=== PATIENT | female | born 1980 | race Caucasian/White ===

== ENCOUNTER 2022-12-05 13:17 | Emergency (ER) | payer MEDICAID ==
[~2022-12-05] VITALS: Ht 165.1 cm; Wt 68.1 kg
[2022-12-05 14:18] LABS: Basophils # (auto) 0.1 10 ^3/uL (0-0.2); Eosinophils # (auto) 0.2 10 ^3/uL (0-0.8); Eosinophils % (auto) 2.8 % (0.0-7.0); Hematocrit 41.7 % (36.0-46.0); Hemoglobin 13.5 g/dL (12.2-16.2); Mean Corpuscular Hgb Conc. 32.5 g/dL (32.0-36.0); Monocytes # (auto) 0.5 10 ^3/uL (0-1.3); Monocytes % (auto) 8.6 % (0.0-12.0); Neutrophils # (auto) 3.3 10 ^3/uL (1.6-8.6)
[2022-12-05 14:20] LABS: Lymphocytes # (auto) 1.5 10 ^3/uL (0.4-5.4); Lymphocytes % (auto) 28.2 % (10.0-50.0); Mean Corpuscular Hemoglobin 26.4 pg (28.0-32.0); Mean Corpuscular Volume 81.4 fL (80.0-100.0); Neutrophils % (auto) 59.4 % (37.0-80.0); Nucleated Red Blood Cells % 0.1 %; Red Blood Cells 5.12 10^6/uL (4.0-5.20); White Blood Cell 5.5 10^3/uL (4.4-10.8)
[2022-12-05 14:37] LABS: Calcium 8.5 mg/dL (8.5-10.1); Potassium 4.1 mmol/L (3.5-5.1)
[2022-12-05 14:41] LABS: Bilirubin, Total 1.2 mg/dL (0.2-1.0); Total Protein 6.4 g/dL (6.4-8.2)
[2022-12-05] MEDS ORDERED: CEPH-322 PO (19:20)
[2022-12-05] MEDS ORDERED: FURO1TAB33 GT (19:20)
[2022-12-05 20:09] VITALS: BP 118/78
== END 2022-12-05 20:13 | disposition home or self-care (01) ==
LOC: ER 13:17
DX: L03.116 Cellulitis of left lower limb (principal); L03.115 Cellulitis of right lower limb; F12.90 Cannabis use, unspecified, uncomplicated; Z87.891 Personal history of nicotine dependence
CPT/HCPCS: 36415; 80053; 83880; 85025; 93005; 93970

== ENCOUNTER 2024-06-19 08:16 | Inpatient (IN) | payer MEDICAID ==
[~2024-06-19] VITALS: Ht 162.6 cm; Wt 75.0 kg
[~2024-06-19 08:16] MED LIST: CEPH250C PO; CEPH500C PO; FURO1TAB33 GT
[2024-06-19] MEDS: PANTOPRAZOLE 40 MG/10 ML VIAL INJ IV ONE (09:54)
[2024-06-19] MEDS: PROCHLORPERAZINE EDISYLATE 5 MG/ML 2ML VIAL IV ONE (09:54)
[2024-06-19] MEDS: SODIUM CHLORIDE 0.9% 500 ML IVB ONE (09:55)
[2024-06-19 10:40] LABS: Basophils # (auto) 0 10 ^3/uL (0-0.2); Basophils % (auto) 0.5 % (0.0-2.0); Eosinophils # (auto) 0 10 ^3/uL (0-0.8); Eosinophils % (auto) 0.2 % (0.0-7.0); Hematocrit 45.9 % (36.0-46.0); Hemoglobin 15.3 g/dL (12.2-16.2); Lymphocytes # (auto) 0.9 10 ^3/uL (0.4-5.4); Lymphocytes % (auto) 14.2 % (10.0-50.0); Mean Corpuscular Hemoglobin 30.6 pg (28.0-32.0); Mean Corpuscular Hgb Conc. 33.4 g/dL (32.0-36.0); Mean Corpuscular Volume 91.8 fL (80.0-100.0); Monocytes # (auto) 0.2 10 ^3/uL (0-1.3); Neutrophils % (auto) 82.1 % (37.0-80.0); Nucleated Red Blood Cells % 0.2 %; Platelet Count (auto) 168 10^3/uL (140-450); Red Cell Distribution Width 19.1 % (11.8-14.3); White Blood Cell 6.1 10^3/uL (4.4-10.8)
[2024-06-19 11:48] LABS: Alanine Aminotransferase 30 U/L (7-40); Alkaline Phosphatase 168 U/L (46-116); Anion Gap 7 (5-15); Aspartate Aminotransferase 41 U/L (13-40); BUN/Creatinine Ratio 7.8 (10.0-20.0); Bilirubin, Total 2.9 mg/dL (0.2-1.0); Blood Urea Nitrogen 7 mg/dL (9-23); Calcium 10.3 mg/dL (8.7-10.4); Carbon Dioxide 25 mmol/L (20-30); Chloride 109 mmol/L (98-107); Glucose 102 mg/dL (74-106); Potassium 4.4 mmol/L (3.5-5.1); Sodium 141 mmol/L (136-145); Total Protein 7.3 g/dL (5.7-8.2)
[2024-06-20] VITALS (7 sets, daily range): BP systolic 137–151; BP diastolic 90–98; PULSE 89–128; RESP 10–21; TEMP 97.8–98.5; O2SAT 90–95
[2024-06-20] MEDS: IOHEXOL 300 MG/ML 100ML BOTTLE IJ ONE (03:42)
[2024-06-20 04:58] LABS: Urine Bacteria None Seen /hpf (None Seen)
[2024-06-20 05:22] LABS: Urine Blood Negative /uL (Negative); Urine Clarity Clear (Clear); Urine Color Yellow (Yellow); Urine Mucus FEW (None Seen); Urine Protein, UAD 1+ (Negative); Urine Urobilinogen 8 mg/dL (Negative); Urine WBC 4 /hpf (0 - 5)
[2024-06-20 05:23] LABS: Urine Specific Gravity > 1.050 (1.001-1.035)
[2024-06-20 05:32] LABS: Amphetamine Screen, Urine Pos (NEGATIVE); Barbiturate Scree,Urine Neg (NEGATIVE); Benzodiazephine Screen, Urine Neg (NEGATIVE); Cannabinoid Screen, Urine Pos (NEGATIVE); Cocaine Screen, Urine Neg (NEGATIVE); Opiate Scree,Urine Neg (NEGATIVE); Phencyclidine Screen, Urine Neg (NEGATIVE)
[2024-06-20] MEDS ORDERED: HYDROmorphone HCL 2 MG/ML VL/or syr IV PRN ×2 (05:45→10:00)
[2024-06-20] MEDS ORDERED: DOCUSATE SOD 100 MG CAP PO PRN (05:45)
[2024-06-20] MEDS ORDERED: ONDANSETRON HCL 4 MG/2 ML VIAL IV PRN (05:45)
[2024-06-20] MEDS ORDERED: HYDROcodone-ACET 5/325MG TAB PO PRN (05:45)
[2024-06-20] MEDS ORDERED: ACETAMINOPHEN 325 MG TAB PO PRN (05:45)
[2024-06-20] MEDS ORDERED: MORPHINE SULFATE INJ 2 MG/ml SYRG IV PRN (06:00)
[2024-06-20] MEDS: SODIUM CHLOR 0.9% PF (SALINE LOCK) 10ML VIAL/SYR IV SCH (06:22)
[2024-06-20] MEDS: PANTOPRAZOLE 40 MG/10 ML VIAL INJ IV SCH (06:24)
[2024-06-20 07:03] LABS: Lactic Acid w/Reflex 2.7 mmol/L (0.4-2.0)
[2024-06-20 07:43] LABS: Basophils # (auto) 0 10 ^3/uL (0-0.2); Basophils % (auto) 0.5 % (0.0-2.0); Eosinophils # (auto) 0 10 ^3/uL (0-0.8); Eosinophils % (auto) 0.1 % (0.0-7.0); Hematocrit 51.4 % (36.0-46.0); Hemoglobin 17.3 g/dL (12.2-16.2); Lymphocytes # (auto) 0.9 10 ^3/uL (0.4-5.4); Mean Corpuscular Hemoglobin 30.7 pg (28.0-32.0); Mean Corpuscular Hgb Conc. 33.6 g/dL (32.0-36.0); Mean Corpuscular Volume 91.3 fL (80.0-100.0); Monocytes # (auto) 0.5 10 ^3/uL (0-1.3); Neutrophils % (auto) 78.4 % (37.0-80.0); Nucleated Red Blood Cells % 0.3 %; Platelet Count (auto) 123 10^3/uL (140-450); Red Blood Cells 5.63 10^6/uL (4.0-5.20); White Blood Cell 6.4 10^3/uL (4.4-10.8)
[2024-06-20 08:01] LABS: INR 1.45 (0.9-1.15)
[2024-06-20 08:03] LABS: Alanine Aminotransferase 26 U/L (7-40); Albumin 3.7 g/dL (3.2-4.8); Alkaline Phosphatase 148 U/L (46-116); Anion Gap 5 (5-15); Aspartate Aminotransferase 29 U/L (13-40); BUN/Creatinine Ratio 9.6 (10.0-20.0); Bilirubin, Total 3.2 mg/dL (0.2-1.0); Blood Urea Nitrogen 11 mg/dL (9-23); Calcium 9.7 mg/dL (8.7-10.4); Carbon Dioxide 27 mmol/L (20-30); Chloride 104 mmol/L (98-107); Glucose 91 mg/dL (74-106); Potassium 4.4 mmol/L (3.5-5.1); Sodium 136 mmol/L (136-145); Total Protein 6.7 g/dL (5.7-8.2)
[2024-06-20] MEDS: LACTATED RINGER'S 1,000 ML IV ONE (08:06)
[2024-06-20] MEDS ORDERED: MEPERIDINE HCL (50 MG/ML) 1 ML VIAL ONE (09:47)
[2024-06-20] MEDS ORDERED: MIDAZOLAM HCL 2MG/2ML 2ml VIAL (1mg/ml) ONE (09:47)
[2024-06-20] MEDS ORDERED: fentaNYL CITRATE 100 MCG/2 ML VL ONE (09:47)
[2024-06-20] MEDS: POVIDONE IODINE 10 % TOPICAL OINT 30GM TOP ONE (09:47)
[2024-06-20] MEDS ORDERED: DexAMETHasone SOD PHOS 10MG/1ML VIAL INJ ONE (09:51)
[2024-06-20] MEDS ORDERED: ONDANSETRON HCL 4 MG/2 ML VIAL ONE (09:51)
[2024-06-20] MEDS ORDERED: ETOMIDATE (2MG/ML) 20ML VIAL IV ONE (09:51)
[2024-06-20] MEDS ORDERED: MIDAZOLAM HCL 2MG/2ML 2ml VIAL (1mg/ml) IV PRN (10:00)
[2024-06-20] MEDS ORDERED: hydrALAZINE HCL 20 MG/ML VL IV PRN (10:00)
[2024-06-20] MEDS ORDERED: MORPHINE SULFATE 4 MG/ML SYR/VIAL IV PRN (10:00)
[2024-06-20] MEDS ORDERED: ePHEDrine SULFATE 50 MG/ML AMP IV PRN (10:00)
[2024-06-20] MEDS: ceFAZolin 1GM/50ML 100 ML IV ONE (10:15)
[2024-06-20] MEDS ORDERED: SUGAMMADEX 200mg/2ml Vial (100MG/ML) IV ONE (11:39)
[2024-06-20] MEDS: HYDROmorphone HCL 2 MG/ML VL/or syr IV ONE (11:45)
[2024-06-20] MEDS ORDERED: POTA-228 PO (15:15)
[2024-06-20] MEDS ORDERED: SILD20TA41 PO (15:15)
[2024-06-20] MEDS ORDERED: METO25TA93 PO (15:15)
[2024-06-20] MEDS ORDERED: SPIR100T4 PO (15:15)
[2024-06-20] MEDS ORDERED: LOS25T PO (15:15)
[2024-06-20] MEDS ORDERED: FURO40TA4 PO (15:15)
[2024-06-20] MEDS: D5W/SOD CHL 0.45%/KCL 20MEQ 1,000 ML IV SCH (15:35)
[2024-06-20] MEDS: METOPROLOL TARTRATE 1MG/1ML-5ML VIAL IV ONE (15:54)
[2024-06-20] MEDS: metroNIDAZOLE 500MG/100ML 100 ML IV SCH (16:30)
[2024-06-20] MEDS: SODIUM CHLORIDE 0.9% 1,000 ML IV ONE (18:38)
[2024-06-20] MEDS: ceFAZolin 2 GM/D5W50ml 50 ML IV SCH (18:42)
[2024-06-21] VITALS (8 sets, daily range): BP systolic 98–117; BP diastolic 58–90; PULSE 64–122; RESP 16–21; TEMP 97.5–98.7; O2SAT 90–100
[2024-06-21 06:50] LABS: Alanine Aminotransferase 21 U/L (7-40); Albumin 3.2 g/dL (3.2-4.8); Alkaline Phosphatase 115 U/L (46-116); Anion Gap 7 (5-15); Aspartate Aminotransferase 26 U/L (13-40); BUN/Creatinine Ratio 13.3 (10.0-20.0); Basophils # (auto) 0 10 ^3/uL (0-0.2); Basophils % (auto) 0.1 % (0.0-2.0); Blood Urea Nitrogen 15 mg/dL (9-23); Calcium 9.1 mg/dL (8.7-10.4); Carbon Dioxide 24 mmol/L (20-30); Chloride 106 mmol/L (98-107); Eosinophils # (auto) 0 10 ^3/uL (0-0.8); Glucose 147 mg/dL (74-106); Hematocrit 45.4 % (36.0-46.0); Hemoglobin 15.3 g/dL (12.2-16.2); Lymphocytes % (auto) 17.6 % (10.0-50.0); Mean Corpuscular Hemoglobin 30.6 pg (28.0-32.0); Mean Corpuscular Hgb Conc. 33.6 g/dL (32.0-36.0); Mean Corpuscular Volume 91.1 fL (80.0-100.0); Monocytes # (auto) 0.7 10 ^3/uL (0-1.3); Neutrophils # (auto) 3.9 10 ^3/uL (1.6-8.6); Neutrophils % (auto) 69.3 % (37.0-80.0); Nucleated Red Blood Cells % 0.3 %; Platelet Count (auto) 124 10^3/uL (140-450); Potassium 4.8 mmol/L (3.5-5.1); Red Blood Cells 4.98 10^6/uL (4.0-5.20); Red Cell Distribution Width 18.6 % (11.8-14.3); Sodium 137 mmol/L (136-145); White Blood Cell 5.6 10^3/uL (4.4-10.8)
[2024-06-21 06:51] LABS: Bilirubin, Total 2.7 mg/dL (0.2-1.0); Total Protein 5.9 g/dL (5.7-8.2)
[2024-06-21] MEDS: SPIRONOLACTONE 25 MG TAB PO SCH (10:00)
[2024-06-21] MEDS: METOPROLOL SUCCINATE XL 50 MG TAB PO SCH (10:00)
[2024-06-21] MEDS: FUROSEMIDE 40 MG TAB PO SCH (10:00)
[2024-06-21] MEDS: LOSARTAN POTASSIUM 25 MG TAB PO SCH (10:00)
[2024-06-21] MEDS: PANTOPRAZOLE 40 MG/10 ML VIAL INJ IV SCH (12:04)
[2024-06-21] MEDS: LACTULOSE 20Gm/30ML SOLN NG SCH (17:12)
[2024-06-22] VITALS (8 sets, daily range): BP systolic 123–143; BP diastolic 81–96; PULSE 74–119; RESP 16–20; TEMP 97.3–98; O2SAT 90–100
[2024-06-22 07:46] LABS: Basophils # (auto) 0 10 ^3/uL (0-0.2); Basophils % (auto) 0.2 % (0.0-2.0); Eosinophils # (auto) 0 10 ^3/uL (0-0.8); Eosinophils % (auto) 0.5 % (0.0-7.0); Hematocrit 42.2 % (36.0-46.0); Hemoglobin 14.3 g/dL (12.2-16.2); Lymphocytes # (auto) 1.9 10 ^3/uL (0.4-5.4); Lymphocytes % (auto) 30.1 % (10.0-50.0); Mean Corpuscular Hemoglobin 30.8 pg (28.0-32.0); Mean Corpuscular Hgb Conc. 33.8 g/dL (32.0-36.0); Mean Corpuscular Volume 91.2 fL (80.0-100.0); Monocytes # (auto) 0.8 10 ^3/uL (0-1.3); Monocytes % (auto) 12.9 % (0.0-12.0); Neutrophils # (auto) 3.5 10 ^3/uL (1.6-8.6); Neutrophils % (auto) 56.3 % (37.0-80.0); Nucleated Red Blood Cells % 0.4 %; Platelet Count (auto) 107 10^3/uL (140-450); Red Blood Cells 4.63 10^6/uL (4.0-5.20); Red Cell Distribution Width 17.9 % (11.8-14.3); White Blood Cell 6.2 10^3/uL (4.4-10.8)
[2024-06-22 07:47] LABS: Alanine Aminotransferase 17 U/L (7-40); Alkaline Phosphatase 104 U/L (46-116); Anion Gap 10 (5-15); Aspartate Aminotransferase 28 U/L (13-40); BUN/Creatinine Ratio 16.7 (10.0-20.0); Blood Urea Nitrogen 15 mg/dL (9-23); Calcium 8.7 mg/dL (8.7-10.4); Carbon Dioxide 22 mmol/L (20-30); Chloride 108 mmol/L (98-107); Glucose 79 mg/dL (74-106); Sodium 140 mmol/L (136-145)
[2024-06-22 07:48] LABS: Albumin 3.2 g/dL (3.2-4.8); Bilirubin, Total 2.1 mg/dL (0.2-1.0); Total Protein 5.7 g/dL (5.7-8.2)
[2024-06-22] MEDS: ONDANSETRON HCL 4 MG/2 ML VIAL IV ONE (12:11)
[2024-06-22] MEDS: ONDANSETRON HCL 4 MG/2 ML VIAL IV PRN (19:50)
[2024-06-23] VITALS (7 sets, daily range): BP systolic 114–131; BP diastolic 71–91; PULSE 73–103; RESP 17–20; TEMP 98–98.5; O2SAT 94–100
[2024-06-23 07:27] LABS: Basophils # (auto) 0 10 ^3/uL (0-0.2); Basophils % (auto) 0.5 % (0.0-2.0); Eosinophils # (auto) 0.1 10 ^3/uL (0-0.8); Eosinophils % (auto) 1.4 % (0.0-7.0); Hematocrit 41.8 % (36.0-46.0); Lymphocytes # (auto) 1.3 10 ^3/uL (0.4-5.4); Lymphocytes % (auto) 24.4 % (10.0-50.0); Mean Corpuscular Hemoglobin 30.4 pg (28.0-32.0); Mean Corpuscular Hgb Conc. 33.5 g/dL (32.0-36.0); Mean Corpuscular Volume 90.7 fL (80.0-100.0); Monocytes # (auto) 0.5 10 ^3/uL (0-1.3); Monocytes % (auto) 9.4 % (0.0-12.0); Neutrophils # (auto) 3.4 10 ^3/uL (1.6-8.6); Neutrophils % (auto) 64.3 % (37.0-80.0); Nucleated Red Blood Cells % 0.6 %; Platelet Count (auto) 112 10^3/uL (140-450); Red Cell Distribution Width 18.1 % (11.8-14.3); White Blood Cell 5.2 10^3/uL (4.4-10.8)
[2024-06-23 07:41] LABS: Alanine Aminotransferase 16 U/L (7-40); Albumin 2.9 g/dL (3.2-4.8); Alkaline Phosphatase 106 U/L (46-116); Anion Gap 5 (5-15); Aspartate Aminotransferase 21 U/L (13-40); BUN/Creatinine Ratio 8.6 (10.0-20.0); Blood Urea Nitrogen 7 mg/dL (9-23); Calcium 8.9 mg/dL (8.7-10.4); Carbon Dioxide 27 mmol/L (20-30); Chloride 108 mmol/L (98-107); Glucose 103 mg/dL (74-106); Potassium 3.8 mmol/L (3.5-5.1); Sodium 140 mmol/L (136-145)
[2024-06-23 07:42] LABS: Bilirubin, Total 1.9 mg/dL (0.2-1.0); Total Protein 5.3 g/dL (5.7-8.2)
[2024-06-23] MEDS: LORazepam 2MG/ML-1ML VIAL IV PRN (15:28)
[2024-06-24 01:00] VITALS: BP 127/86; PULSE 105; RESP 16; TEMP 98.3; O2SAT 94
[2024-06-24 05:00] VITALS: BP 133/88; PULSE 87; RESP 19; TEMP 98.4; O2SAT 94
[2024-06-24 06:32] LABS: Basophils # (auto) 0 10 ^3/uL (0-0.2); Basophils % (auto) 0.5 % (0.0-2.0); Eosinophils # (auto) 0.2 10 ^3/uL (0-0.8); Hematocrit 44.5 % (36.0-46.0); Hemoglobin 14.9 g/dL (12.2-16.2); Lymphocytes # (auto) 1.2 10 ^3/uL (0.4-5.4); Lymphocytes % (auto) 24.3 % (10.0-50.0); Mean Corpuscular Hemoglobin 30.2 pg (28.0-32.0); Mean Corpuscular Hgb Conc. 33.4 g/dL (32.0-36.0); Mean Corpuscular Volume 90.5 fL (80.0-100.0); Monocytes # (auto) 0.6 10 ^3/uL (0-1.3); Monocytes % (auto) 11.3 % (0.0-12.0); Neutrophils # (auto) 3.1 10 ^3/uL (1.6-8.6); Neutrophils % (auto) 60.9 % (37.0-80.0); Nucleated Red Blood Cells % 0.3 %; Platelet Count (auto) 130 10^3/uL (140-450); Red Blood Cells 4.92 10^6/uL (4.0-5.20); Red Cell Distribution Width 18.2 % (11.8-14.3); White Blood Cell 5.1 10^3/uL (4.4-10.8)
[2024-06-24 06:43] LABS: Alanine Aminotransferase 11 U/L (7-40); Albumin 3.1 g/dL (3.2-4.8); Alkaline Phosphatase 109 U/L (46-116); Anion Gap 4 (5-15); Aspartate Aminotransferase 21 U/L (13-40); BUN/Creatinine Ratio 6.7 (10.0-20.0); Blood Urea Nitrogen 6 mg/dL (9-23); Calcium 9.1 mg/dL (8.7-10.4); Carbon Dioxide 29 mmol/L (20-30); Chloride 106 mmol/L (98-107); Glucose 83 mg/dL (74-106); Potassium 3.8 mmol/L (3.5-5.1); Sodium 139 mmol/L (136-145)
[2024-06-24 06:44] LABS: Bilirubin, Total 1.6 mg/dL (0.2-1.0); Total Protein 5.4 g/dL (5.7-8.2)
[2024-06-24 08:00] VITALS: PULSE 112; RESP 18; O2SAT 94
[2024-06-24 09:00] VITALS: BP 122/85; PULSE 106; RESP 18; TEMP 97.8; O2SAT 94
[2024-06-24] MEDS ORDERED: LEVO500T91 PO (09:33)
[2024-06-24] MEDS ORDERED: METR-344 PO (09:33)
[2024-06-24 12:55] VITALS: BP 111/74; PULSE 98; RESP 18; TEMP 98.5; O2SAT 92
== END 2024-06-24 13:30 | disposition home or self-care (01) | DRG 228 ==
LOC: EDBD 08:16 → ER 08:22 → TELE 06-20 05:34 → TELE-CENTR 06-20 13:28
PROVIDERS: ADMIT Internal Medicine; ATTEND Family Medicine
PROC: 0WQF0ZZ Repair Abdominal Wall, Open Approach (ICD-10-PCS; principal; 2024-06-20 10:50)
DX: K42.0 Umbilical hernia with obstruction, without gangrene (principal); I11.0 Hypertensive heart disease with heart failure; I50.32 Chronic diastolic (congestive) heart failure; K74.60 Unspecified cirrhosis of liver; E86.0 Dehydration; K43.6 Other and unspecified ventral hernia with obstruction, without gangrene; F12.10 Cannabis abuse, uncomplicated; F17.210 Nicotine dependence, cigarettes, uncomplicated; I07.1 Rheumatic tricuspid insufficiency; F15.10 Other stimulant abuse, uncomplicated; Z79.899 Other long term (current) drug therapy
CPT/HCPCS: 36415; 71045; 74177; 80053; 80307; 81001; 82140; 83605; 84702; 85025; 85610; 93005; 93306; G0378; J1100; J2250; J2405; J2470; J3490

== ENCOUNTER 2025-08-13 20:19 | Inpatient (IN) | payer MEDICAID ==
[~2025-08-13] VITALS: Ht 165.1 cm; Wt 102.9 kg
[~2025-08-13 20:19] MED LIST changes: -CEPH250C PO; -FURO1TAB33 GT; +FURO40TA4 PO; +LEVO500T91 PO; +LOS25T PO; +METO25TA93 PO; +METR-344 PO; +POTA-228 PO; +SILD20TA41 PO; +SPIR100T4; +SPIR100T4 PO
[2025-08-13 20:32] VITALS: PULSE 117; RESP 20; O2SAT 92
[2025-08-13] MEDS: ALBUTEROL SULF 2.5 MG/0.5ML(0.5%) NEB SOLN NEB ONE (21:13)
[2025-08-13 21:34] LABS: Hematocrit 38.7 % (36.0-46.0); Hemoglobin 13.0 g/dL (12.2-16.2); Mean Corpuscular Hemoglobin 30.3 pg (28.0-32.0); Mean Corpuscular Volume 90.4 fL (80.0-100.0); Nucleated Red Blood Cells % 0.5 %
[2025-08-13 21:36] LABS: Chloride 104 mmol/L (98-107); Sodium 138 mmol/L (136-145)
[2025-08-13 21:37] LABS: Anion Gap 11 (5-15); Carbon Dioxide 23 mmol/L (20-31)
[2025-08-13 21:42] LABS: BUN/Creatinine Ratio 12.8 (10.0-20.0); Blood Urea Nitrogen 11 mg/dL (9-23); Glucose 86 mg/dL (74-106)
--- NOTE | 2025-08-13 21:47 | DVH ---
EXAM: XY CHEST XRAY 1 VIEW HISTORY: cp TECHNIQUE: 1 view of the chest COMPARISON: XR CHEST 1 VIEW on DOS: 04/26/25 FINDINGS/IMPRESSION: LUNGS: Indeterminate retrocardiac opacification which may be related to under penetration from severe cardiomegaly MEDIASTINUM: Severe cardiomegaly and/or superimposed pericardial effusion BONES: No acute osseous abnormality. OTHER: None.
[2025-08-13 22:10] LABS: Calcium 8.5 mg/dL (8.7-10.4); Potassium 3.3 mmol/L (3.5-5.1)
--- NOTE | 2025-08-13 22:22 | ED.PDOC ---
HPI Comments 45 y/o F is BIBA for c/c of shortness of breath and bilateral leg swelling. Patient endorses on onset of symptoms after patient decided to stop taking her Lasix and potassium prescription medication for the past 5x days. Admits to methamphetamine use, this morning. Denies any chest or abdominal pain, cough, congestion, fever, chills, or further acute symptoms. Significant history for CHF, polysubstance abuse, and noncompliance. REVIEW OF SYSTEMS: General: No fever, no chills, or fatigue HEENT: No sore throat, no earache, no congestion, no neck pain. Cardiac: No chest pain. No palpitations. Lungs: Shortness of breath, no cough. GI: No nausea, no vomiting, no diarrhea, no constipation, no abdominal pain : No dysuria, frequency, or urgency. No hematuria. Musculoskeletal: Bilateral leg swelling. No joint pain , no joint swelling Skin: No rash, no itching. Neuro: No headache, no dizziness, no weakness PHYSICAL EXAM: General: Awake, alert and oriented. No acute distress. Skin: Skin in warm, dry and intact. Appropriate color for ethnicity. HEENT: The head is normocephalic and atraumatic. Conjunctivae are clear without exudates or hemorrhage. Sclera is non-icteric. EOM are intact. No signs of nystagmus. Eyelids are normal in appearance without swelling or lesions. Oral mucosa is pink and moist Neck: The neck is supple with normal range of motion. No JVD. Cardiac: Heart rate and rhythm are normal. No murmurs, gallops, or rubs are auscultated. Respiratory: No signs of respiratory distress. Lung sounds are clear in all lobes bilaterally without rales, rhonchi, or wheezes. Abdominal: Abdomen is soft, non-tender without distention, guarding or rigidity. Bowel sounds are present and normoactive in all four quadrants. Extremities: Bilateral lower extremity pitting edema, which extends to her lower abdomen. Remaining upper extremities are atraumatic in appearance without deformity or edema. Neurological: The patient is awake, alert and oriented to person, place, and time with normal speech. Speech is clear. There is no facial asymmetry. Psychiatric: Appropriate mood and affect. Good judgement and insight. Chief Complaint: Shortness of Breath Time Seen by MD: 20:59 Primary Care Provider: NONE Reviewed Notes: Nurses Notes, Clock Repair Technician Notes, Medications, Allergies Allergies: Coded Allergies: NO KNOWN ALLERGIES (Unverified , 09/15/15) Home Meds Active Scripts Metronidazole (Flagyl) 500 Mg Tab, 1 TAB PO TID, #30 TAB Prov:LEANN SEGURA MD 06/24/24 Levofloxacin Hemihydrate (LEVAQUIN 500 MG) 500 Mg Tab, 1 TAB PO DAILY, #10 TAB Prov:LEANN SEGURA MD 06/24/24 Reported Medications Spironolactone (Spironolactone) 100 Mg Tab, 1 DAILY 11/08/24 Furosemide (Furosemide) 40 Mg Tab, 1 TAB PO DAILY 11/08/24 Cephalexin Monohydrate (Cephalexin) 500 Mg Cap, 1 CAP PO TID for 7 Days, #21 06/21/24 Potassium Chloride (Potassium Chloride ER) 10 Meq Tab, 1 TAB PO DAILY 06/20/24 Losartan Potassium (Losartan Potassium) 25 Mg Tab, 1 TAB PO DAILY 06/20/24 Metoprolol Succinate (Metoprolol Succinate Er) 25 Mg Tab, 1 TAB PO DAILY 06/20/24 Sildenafil Citrate (Sildenafil Citrate) 20 Mg Tab, PO 06/20/24 Spironolactone (Spironolactone) 100 Mg Tab, 1 TAB PO DAILY 06/20/24 Furosemide (Furosemide) 40 Mg Tab, 1 TAB PO DAILY 06/20/24 Information Source: Patient, Emergency Med Personnel Mode of Arrival: EMS Severity: Moderate Timing: Hours Duration: Since onset Prehospital treatment: 12 Lead EKG, Accucheck (139), Video Game Technician, Oxygen Past Medical History PAST MEDICAL HISTORY: CHF, Liver (Cirrhosis) Past Medical History (Other): SBO Influenza A pneumonia Surgical History: Denies all surgeries ROAD CUTTER History: No Pertinent ROAD CUTTER History Family History Family History: Unobtainable Social History Smoker: Cigarettes Alcohol: Occasionally Drugs: Marijuana, Methamphetamine Lives In: Home EKG EKG : Pulse Rate (adult): 116 [place]: Normal Cardiac Rhythm: ST Block: None Hypertrophy: None ST: Normal Was a procedure done? Was a procedure done?: No CP Differential Dx Differential Diagnosis: N/A Other Differential Diagnosis Differential diagnoses considered includebut arenot limited to acute Bronchitis, Asthma, COPD, Pneumothorax, PE, CHF, Pulmonary HTN, Anemia, CO Poiso alysa, Methemoglobinemia, Hyperventilation, Metabolic Acidosis, Pulmonary Edema, Pneumonia, ACS, Pericardial Tamponade, Anxiety, other Differential Diagnosis: N/A X-Ray, Labs, Meds, VS Vital Signs Date Time Temp Pulse Resp B/P (MAP) Pulse Ox O2 Delivery O2 Flow Rate FiO2 08/13/25 21:13 18 91 Nasal Cannula* 6 44 08/13/25 21:00 120 21 110/85 (93) 94 08/13/25 20:32 20 92 Nasal Cannula* 4 36 08/13/25 20:32 98.6 117 20 136/86 (103) 92 98.6 08/13/25 20:32 117 20 92 Nasal Cannula* 4 36 08/13/25 20:29 98.0 118 25 122/65 91 98.0 08/13/25 20:27 116 Lab Test 08/13/25 22:00 08/13/25 21:19 Range/Units Troponin I High Sensitivity 33 35 *H </=34 ng/L White Blood Count 5.2 4.4-10.8 10^3/uL Red Blood Count 4.28 4.0-5.20 10^6/uL Hemoglobin 13.0 12.2-16.2 g/dL Hematocrit 38.7 36.0-46.0 % Mean Corpuscular Volume 90.4 80.0-100.0 fL Mean Corpuscular Hemoglobin 30.3 28.0-32.0 pg Mean Corpuscular Hemoglobin Concent 33.5 32.0-36.0 g/dL Red Cell Distribution Width 19.2 H 11.8-14.3 % Platelet Count 135 L 140-450 10^3/uL Mean Platelet Volume 9.1 6.9-10.8 fL Neutrophils (%) (Auto) 67.5 37.0-80.0 % Lymphocytes (%) (Auto) 18.6 10.0-50.0 % Monocytes (%) (Auto) 12.1 H 0.0-12.0 % Eosinophils (%) (Auto) 0.6 0.0-7.0 % Basophils (%) (Auto) 1.2 0.0-2.0 % Neutrophils # (Auto) 3.5 1.6-8.6 10 ^3/uL Lymphocytes # (Auto) 1.0 0.4-5.4 10 ^3/uL Monocytes # (Auto) 0.6 0-1.3 10 ^3/uL Eosinophils # (Auto) 0 0-0.8 10 ^3/uL Basophils # (Auto) 0.1 0-0.2 10 ^3/uL Nucleated Red Blood Cells 0.5 % Sodium Level 138 136-145 mmol/L Potassium Level 3.3 L 3.5-5.1 mmol/L Chloride Level 104 98-107 mmol/L Carbon Dioxide Level 23 20-31 mmol/L Anion Gap 11 5-15 Blood Urea Nitrogen 11 9-23 mg/dL Creatinine 0.86 0.550-1.02 mg/dL Glomerular Filtration Rate Calc 85 >90 mL/min BUN/Creatinine Ratio 12.8 10.0-20.0 Serum Glucose 86 74-106 mg/dL Calcium Level 8.5 L 8.7-10.4 mg/dL B-Type Natriuretic Peptide 525.25 0-100 pg/mL [place] [id number] Ph: [phone] DIAGNOSTIC IMAGING Diagnostic Imaging Report : [id number] Signed PATIENT: JOSE ALFREDO BINGHAM ACCT: [id number] UNIT: [id number] : 1980 LOC: ER ROOM / BED: / AGE / SEX: 45 / F ADM STATUS: REG ER SERVICE 01 ORDERING PHYSICIAN: MALLY CHUNG MD PROCEDURE(s): CXR1 - CHEST XRAY 1 VIEW REASON: cp ORDER NUMBER(s): [id number], ACCESSION NUMBER(s): [id number] EXAM: XY CHEST XRAY 1 VIEW HISTORY: cp TECHNIQUE: 1 view of the chest COMPARISON: XR CHEST 1 VIEW on DOS: 04/26/25 FINDINGS/IMPRESSION: LUNGS: Indeterminate retrocardiac opacification which may be related to under penetration from severe cardiomegaly MEDIASTINUM: Severe cardiomegaly and/or superimposed pericardial effusion BONES: No acute osseous abnormality. OTHER: None. ATED BY: JOSE ANTONIO ARCHULETA MD DICTATED DATE/TIME: 08/13/252143 SIGNED BY: JOSE ANTONIO ARCHULETA MD SIGNED DATE/TIME: 08/13/252143 CC: Time of 1ST Reevaluation: 21:19 Reevaluation 1ST: Unchanged Patient Education/Counseling: Treatment, Other (need for admission) Family Education/Counseling: No Family Present SEPSIS Sepsis Screen Date sepsis recognized/suspect: Aug 13, 2025 Time Sepsis recognized/suspect: 2031 Recent Procedure: No On Antibiotic Therapy: No Respiratory Rate >20: No Heart Rate >90: Yes Temp<36 C (96.8 F) or >38.3 C: No SBP <90 or MAP <65 mmHG: No New Acute Mental Status Change: No Is the patient on CPAP, BIPAP,: No Physician Orders Electrocardigram (08/13/25 21:02) Chest Xray 1 View (08/13/25 21:02) Vital Signs Q1HR (08/13/25 21:02) Saline Lock (08/13/25 21:02) Video Game Technician (08/13/25 ) Electrocardigram (08/13/25 22:02) Electrocardigram (08/14/25 00:02) Vital Signs Date Time Temp Pulse Resp B/P (MAP) Pulse Ox O2 Delivery O2 Flow Rate FiO2 08/13/25 21:13 18 91 Nasal Cannula* 6 44 08/13/25 21:00 120 21 110/85 (93) 94 08/13/25 20:32 20 92 Nasal Cannula* 4 36 08/13/25 20:32 98.6 117 20 136/86 (103) 92 98.6 08/13/25 20:32 117 20 92 Nasal Cannula* 4 36 08/13/25 20:29 98.0 118 25 122/65 91 98.0 08/13/25 20:27 116 Laboratory Tests Test 08/13/25 21:19 White Blood Count 5.2 10^3/uL (4.4-10.8) Departure 1 Departure Time of Disposition: 22:21 Impression: Primary Impression: CHF exacerbation Disposition: ADMITTED INPATIENT Condition: Serious Comments MDM: Patient admitted to hospitalist service for further treatment, evaluation and monitoring. Extensive evaluation was performed in attempt to identify or rule out: (See differential diagnosis section) The following tests were ordered, and results were reviewed by me and discussed with patient: (See diagnostic results section) I reviewed and agreed with the following test results read by other providers: Chest x-ray I reviewed the following notes from the pt's past medical encounters: November 08, 2024 encounter for acute on chronic congestive heart failure exacerbation Additional information was gathered from interviewing the following independent historians: EMS personnel Decision regarding hospitalization or escalation of hospital level of care: Risk and benefits of admission for further treatment of patient's condition was considered. Due to patient's current clinical condition, high risk of decline and poor outcome if discharged and need for further inpatient management and monitoring, patient will be admitted to the hospital. Critical Care Note Critical Care Time?: No Stability Stability form required: No Heart Score Heart Score: Heart Score Response (Comments) Value History N/A 0 EKG N/A 0 Age N/A 0 Risk Factors N/A 0 Troponin N/A 0 Total 0 I personally scribed for MALLY CHUNG MD ([email or web address]) on 08/13/25 at 23:31. Electronically submitted by Aleksandr Woods ([email or web address]). MALLY CHUNG MD Aug 13, 2025 22:21
[2025-08-13] MEDS ORDERED: ONDANSETRON HCL 4 MG/2 ML VIAL IV PRN (22:30)
[2025-08-13] MEDS: FUROSEMIDE 40 MG/4 ML VIAL IV ONE (22:30)
[2025-08-13] MEDS ORDERED: ACETAMINOPHEN 325 MG TAB PO PRN (22:30)
[2025-08-13] MEDS ORDERED: MORPHINE SULFATE INJ 2 MG/ml SYRG IV PRN (22:30)
[2025-08-13] MEDS ORDERED: NITROGLYCERIN 0.4 MG SL TAB SL PRN (22:30)
[2025-08-13] MEDS ORDERED: DOCUSATE SOD 100 MG CAP PO PRN (22:30)
--- NOTE | 2025-08-13 22:33 | DVHHP2 ---
History of Present Illness Reason for Visit: Acute exacerbation of congestive heart failure History of Present Illness The patient is a 45-year-old female with past medical history of congestive hear t failure, liver cirrhosis, SBO, and influenza A pneumonia presented to [facility] ED with complaint of shortness of breaths. Patient reports she has been experiencing difficulty breathing, associated with bilateral leg swelling, increased work of breathing, getting worse that prompted this visit. Patient was seen and evaluated in the ED, laboratory data shows WBC 5.2, platelets 135, sodium 138, potassium 3.3, BUN 11, creatinine 0.86, GFR 85, glucose 86, calcium 8.5, troponin 35, BNP 525.25, blood pressure 136/86, heart rate 118, temperature 98.6 F, O2 saturation 92% on oxygen. Chest x-ray revealing severe cardiomegaly and/or superimposed pericardial effusion. Patient was started on Lasix 80 mg IV x1, please see medication orders section in the computer. On my assessment, patient denied chest pain, no dizziness, headache, diaphoresis, currently on oxygen, no diarrhea, nausea, vomiting, fever, no chills. Patient was admitted for further evaluation and medical management. Past Medical History CHF, Liver (Cirrhosis), SBO, Influenza A pneumonia Past Surgical History Denies all surgeries Family History Reviewed, noncontributory to the management of this case. Past Social History The patient lives at home, smokes cigarettes, drinks alcohol occasionally, uses marijuana and methamphetamine. Review of Systems Constitutional: Yes: Weakness; No: Fever, Chills, Sweats, Malaise, Other Eyes: No: Pain, Vision change, Conjunctivae inflammation, Eyelid inflammation, Other, Redness ENT: No: Ear pain, Ear discharge, Nose pain, Nose discharge, Nose congestion, Mouth pain, Mouth swelling, Throat pain, Throat swelling, Other Respiratory: Shortness of breath, Other (SOB at rest); No: Cough, Dry, SOB with excertion, Wheezing, Hemoptysis, Pleuritic Pain, Sputum, Wheezing Cardiovascular: No: Chest Pain, Palpitations, Orthopnea, Paroxysmal Noc. Dyspnea, Edema, Lt Headedness, Other Gastrointestinal: No: Nausea, Vomiting, Abdominal Pain, Diarrhea, Constipation, Melena, Hematochezia, Other Genitourinary: No Dysuria, No Frequency, No Incontinence, No Hematuria, No Retention, No Other Musculoskeletal: other (Bilateral lower extremity swelling); No: neck pain, shoulder pain, arm pain, back pain, hand pain, leg pain, foot pain Skin: No: Rash, Lesions, Jaundice, Bruising, Other Neurological: No: Weakness, Numbness, Incoordination, Change in speech, Confusion, Seizures, Other Allergies: Coded Allergies: NO KNOWN ALLERGIES (Unverified , 09/15/15) Exam Vital Signs Vital Signs Date Time Temp Pulse Resp B/P (MAP) Pulse Ox O2 Delivery O2 Flow Rate FiO2 08/13/25 21:13 18 91 Nasal Cannula* 6 44 08/13/25 20:32 98.6 117 136/86 (103) 98.6 General Appearance: Alert, Oriented X3, Cooperative, No acute distress HEENT: Atraumatic, PERRLA, EOMI, Mucous membr. moist/pink Respiratory: Normal air movement, Other (Diminished breath sounds) Cardiovascular: Regular rate, Normal S1, Normal S2, No murmurs Abdominal: Normal bowel sounds, Soft, No tenderness, No hepatospenomegaly, No masses Extremities: No clubbing, No cyanosis, No edema, Normal pulses, Other (Lower extremity swelling) Skin: No rashes, No significant lesion Neuro: Normal speech, Normal tone, Sensation intact, Cranial nerves 3-12 NL, Reflexes 2+, Other (Generalized weakness) Psych/Mental Status: Mental status NL, Mood NL Labs/Xrays Labs Test 08/13/25 22:00 08/13/25 21:19 Range/Units White Blood Count 5.2 4.4-10.8 10^3/uL Red Blood Count 4.28 4.0-5.20 10^6/uL Hemoglobin 13.0 12.2-16.2 g/dL Hematocrit 38.7 36.0-46.0 % Mean Corpuscular Volume 90.4 80.0-100.0 fL Mean Corpuscular Hemoglobin 30.3 28.0-32.0 pg Mean Corpuscular Hemoglobin Concent 33.5 32.0-36.0 g/dL Red Cell Distribution Width 19.2 H 11.8-14.3 % Platelet Count 135 L 140-450 10^3/uL Mean Platelet Volume 9.1 6.9-10.8 fL Neutrophils (%) (Auto) 67.5 37.0-80.0 % Lymphocytes (%) (Auto) 18.6 10.0-50.0 % Monocytes (%) (Auto) 12.1 H 0.0-12.0 % Eosinophils (%) (Auto) 0.6 0.0-7.0 % Basophils (%) (Auto) 1.2 0.0-2.0 % Neutrophils # (Auto) 3.5 1.6-8.6 10 ^3/uL Lymphocytes # (Auto) 1.0 0.4-5.4 10 ^3/uL Monocytes # (Auto) 0.6 0-1.3 10 ^3/uL Eosinophils # (Auto) 0 0-0.8 10 ^3/uL Basophils # (Auto) 0.1 0-0.2 10 ^3/uL Nucleated Red Blood Cells 0.5 % Sodium Level 138 136-145 mmol/L Potassium Level 3.3 L 3.5-5.1 mmol/L Chloride Level 104 98-107 mmol/L Carbon Dioxide Level 23 20-31 mmol/L Anion Gap 11 5-15 Blood Urea Nitrogen 11 9-23 mg/dL Creatinine 0.86 0.550-1.02 mg/dL Glomerular Filtration Rate Calc 85 >90 mL/min BUN/Creatinine Ratio 12.8 10.0-20.0 Serum Glucose 86 74-106 mg/dL Calcium Level 8.5 L 8.7-10.4 mg/dL B-Type Natriuretic Peptide 525.25 0-100 pg/mL PATIENT: JOSE ALFREDO BINGHAM ACCT: [id number] UNIT: [id number] : 1980 LOC: ER ROOM / BED: / AGE / SEX: 45 / F ADM STATUS: REG ER SERVICE 01 ORDERING PHYSICIAN: MALLY CHUNG MD PROCEDURE(s): CXR1 - CHEST XRAY 1 VIEW REASON: cp ORDER NUMBER(s): [id number], ACCESSION NUMBER(s): [id number] EXAM: XY CHEST XRAY 1 VIEW HISTORY: cp TECHNIQUE: 1 view of the chest COMPARISON: XR CHEST 1 VIEW on DOS: 04/26/25 FINDINGS/IMPRESSION: LUNGS: Indeterminate retrocardiac opacification which may be related to under penetration from severe cardiomegaly MEDIASTINUM: Severe cardiomegaly and/or superimposed pericardial effusion BONES: No acute osseous abnormality. OTHER: None. SEPSIS Sepsis Screen Date sepsis recognized/suspect: Aug 13, 2025 Time Sepsis recognized/suspect: 2031 Recent Procedure: No On Antibiotic Therapy: No Respiratory Rate >20: No Heart Rate >90: Yes Temp<36 C (96.8 F) or >38.3 C: No SBP <90 or MAP <65 mmHG: No New Acute Mental Status Change: No Is the patient on CPAP, BIPAP,: No Physician Orders Electrocardigram (08/13/25 21:02) Chest Xray 1 View (08/13/25 21:02) Vital Signs Q1HR (08/13/25 21:02) Saline Lock (08/13/25 21:02) Ict Sales Assistant (08/13/25 ) Electrocardigram (08/13/25 22:02) Electrocardigram (08/14/25 00:02) Troponin-I Hs (08/13/25 22:02) Troponin-I Hs (08/14/25 00:02) Furosemide Injection (Lasix Injection) (08/14/25 10:00) Aspirin Tablet (08/14/25 10:00) Aspirin Tablet (08/13/25 22:30) Carvedilol Tablet (Coreg Tablet) (08/14/25 10:00) Carvedilol Tablet (Coreg Tablet) (08/13/25 22:30) Levalbuterol Hcl (Xopenex Medneb) (08/14/25 00:00) Potassium Er Tablet (Klor-Con Tablet) (08/13/25 22:30) Admit (08/13/25:) Allergies (08/13/25:) Code Status (08/13/25:) Sodium Chloride Lock (Saline Lock Ns) (08/14/25 06:00) Oxygen Per Hour (08/13/25:25) Hydrocodone-Acet 5/325mg Tab ([place] 5/32 (08/13/25 22:30) Ondansetron Hcl (Zofran) (08/13/25 22:30) Docusate Sodium Capsule (Colace Capsule) (08/13/25 22:30) Complete Blood Count (08/14/25 04:00) Comprehensive Metabolic Panel (08/14/25 04:00) Cardiac Diet-2gna,Lofat,Lochol (08/14/25 Breakfast) Echo 2d Mode Cardiac Dop (08/13/25 22:25) Condition: Serious (08/13/25 22:25) Acetaminophen Tablet (Tylenol Tablet) (08/13/25 22:30) Bedrest With Bathroom Privileg (08/13/25:25) Maintain Bed Rest (08/13/25 22:25) Sequential Compression Device (08/13/25 ) Nitroglycerin Sublingual (Ntrostat Subli (08/13/25 22:30) Morphine Sulfate Injection (08/13/25 22:30) Stat Ekg For Chest Pain (08/13/25:25) Notify Of Changes From Base (08/13/25:) Clerical Car Checker For 24 Hours (08/13/25:25) Emergency Dysrhythmia Protocol (08/13/25:) Rhythm Strips Once Every Shift (08/13/25:25) Oxygen By Nasal Cannula (08/13/25:25) Vital Signs Date Time Temp Pulse Resp B/P (MAP) Pulse Ox O2 Delivery O2 Flow Rate FiO2 08/13/25 21:13 18 91 Nasal Cannula* 6 44 08/13/25 20:32 20 92 Nasal Cannula* 4 36 08/13/25 20:32 98.6 117 20 136/86 (103) 92 98.6 08/13/25 20:32 117 20 92 Nasal Cannula* 4 36 08/13/25 20:29 98.0 118 25 122/65 91 98.0 08/13/25 20:27 116 Laboratory Tests Test 08/13/25 21:19 White Blood Count 5.2 10^3/uL (4.4-10.8) Medications Medications Dose Ordered Sig/Kendra Route Start Time Stop Time Status Last Admin Dose Admin Albuterol 2.5 mg ONCE ONCE NEB 08/13/25 21:15 08/13/25 21:16 DC 08/13/25 21:13 2.5 MG Assessment/Plan Assessment/Plan Acute exacerbation of congestive heart failure Hypokalemia Generalized weakness Plan 1. Admit to telemetry unit 2. Breathing treatment 3. Pain control management 4. Management of fluids and electrolytes 5. Consultation for hospitalist 6. Diagnostic tests chest x-ray 7. DVT prophylaxis-on aspirin 8. Repeat labs CBC, CMP in a.m. 9. Continue with current medical management 10. Treatment plan discussed with patient and RN. Patient verbalized understanding. Plan discussed with: Patient, Other (RN) My Orders Orders - MONTY CLINTON DNP Procedure Category Date Status Time Furosemide Injection PHA 08/14/25 Verified (Lasix Injection) 10:00 Aspirin Tablet PHA 08/14/25 Verified 10:00 Aspirin Tablet PHA 08/13/25 Verified 22:30 Carvedilol Tablet PHA 08/14/25 Verified (Coreg Tablet) 10:00 Carvedilol Tablet PHA 08/13/25 Verified (Coreg Tablet) 22:30 Levalbuterol Hcl PHA 08/14/25 Verified (Xopenex Medneb) 00:00 Potassium Er Tablet PHA 08/13/25 Verified (Klor-Con Tablet) 22:30 Admit ADMIT 08/13/25 Verified 22:25 Allergies ERIN 08/13/25 Verified 22:25 Code Status CODE 08/13/25 Verified 22:25 Sodium Chloride Lock PHA 08/14/25 Verified (Saline Lock Ns) 06:00 Oxygen Per Hour RT 08/13/25 Verified 22:25 Hydrocodone-Acet PHA 08/13/25 Verified 5/325mg Tab ([place] 22:30 Ondansetron Hcl PHA 08/13/25 Verified (Zofran) 22:30 Docusate Sodium PHA 08/13/25 Verified Capsule (Colace 22:30 Complete Blood Count LAB 08/14/25 Verified 04:00 Comprehensive LAB 08/14/25 Verified Metabolic Panel 04:00 Cardiac DIET 08/14/25 Verified Diet-2gna,Lofat,Lochol Breakfast Echo 2d Mode Cardiac US 08/13/25 Verified DOP 22:25 Condition: Serious ERIN 08/13/25 Verified 22:25 Acetaminophen Tablet PHA 08/13/25 Verified (Tylenol Tablet) 22:30 Bedrest With Bathroom ERIN 08/13/25 Verified Privileg 22:25 Maintain Bed Rest ERIN 08/13/25 Verified 22:25 Sequential ERIN 08/13/25 Verified Compression Device Nitroglycerin PHA 08/13/25 Verified Sublingual (Ntrostat 22:30 Morphine Sulfate PHA 08/13/25 Verified Injection 22:30 Stat Ekg For Chest ERIN 08/13/25 Verified Pain 22:25 Notify Md Of Changes ERIN 08/13/25 Verified From Base 22:25 Clerical Car Checker For [facility] 08/13/25 Verified 24 Hours 22:25 Emergency Dysrhythmia [facility] 08/13/25 Verified Protocol 22:25 Rhythm Strips Once [facility] 08/13/25 Verified Every Shift 22:25 Oxygen By Nasal RT 08/13/25 Verified Cannula 22:25 Problem List: (1) Acute exacerbation of congestive heart failure (2) Hypokalemia (3) Generalized weakness Date of Service: Aug 13, 2025 Billing Provider: MONTY CLINTON DNP Common Visit Codes: [id number] INP/OBS CARE (HIGH) MONTY CLINTON DNP Aug 13, 2025 22:33
[2025-08-13 22:58] VITALS: BP 128/80; PULSE 119; RESP 20; TEMP 98.4; O2SAT 93
[2025-08-13] MEDS: CARVEDILOL 3.125 MG TAB PO ONE (23:31)
[2025-08-13] MEDS: POTASSIUM CHL 20 Meq TABLET PO ONE (23:31)
[2025-08-14] VITALS (16 sets, daily range): BP systolic 100–124; BP diastolic 59–78; PULSE 78–113; RESP 12–24; TEMP 97.8–98.8; O2SAT 88–98
[2025-08-14] MEDS: LEVALBUTEROL HCL 1.25 MG/3 ML NEB NEB SCH (00:03)
[2025-08-14 00:26] LABS: Urine Protein, UAD 1+ (Negative)
[2025-08-14] MEDS: HYDROcodone-ACET 5/325MG TAB PO PRN (04:37)
[2025-08-14] MEDS: SODIUM CHLOR 0.9% PF (SALINE LOCK) 10ML VIAL/SYR IV SCH (05:08)
[2025-08-14 05:56] LABS: Hematocrit 40.0 % (36.0-46.0); Hemoglobin 13.2 g/dL (12.2-16.2); Mean Corpuscular Hemoglobin 29.8 pg (28.0-32.0); Mean Corpuscular Volume 90.4 fL (80.0-100.0); Nucleated Red Blood Cells % 0.1 %
[2025-08-14 06:26] LABS: Alanine Aminotransferase 35 U/L (7-40); Anion Gap 9 (5-15); BUN/Creatinine Ratio 10.7 (10.0-20.0); Blood Urea Nitrogen 9 mg/dL (9-23); Carbon Dioxide 24 mmol/L (20-31); Chloride 104 mmol/L (98-107); Glucose 75 mg/dL (74-106); Potassium 3.9 mmol/L (3.5-5.1); Sodium 137 mmol/L (136-145); Total Protein 6.3 g/dL (5.7-8.2)
[2025-08-14 06:33] LABS: Albumin 2.9 g/dL (3.2-4.8); Alkaline Phosphatase 183 U/L (46-116); Bilirubin, Total 8.8 mg/dL (0.2-1.0); Calcium 8.2 mg/dL (8.7-10.4)
--- NOTE | 2025-08-14 09:56 | ECG ---
[facility] Test Date: 2025-08-13 Test Time: 20:27:34 Pat Name: JOSE ALFREDO BINGHAM Department: [facility] ED Patient ID: [facility]-[id number] Room: 0245T A Gender: F Fiberglass Quality Technician: nico : 1980 Requested By: MALLY CHUNG Order Number: [id number] Reading MD: Jose Pop Measurements Intervals [place] Rate: 116 P: 77 MO: 167 QRS: 125 QRSD: 108 T: -43 QT: 347 QTc: 483 Interpretive Statements Sinus tachycardia Left atrial enlargement Low voltage, extremity and precordial leads Probable right ventricular hypertrophy Nonspecific T abnormalities, lateral leads Electronically Signed On 08-14-2025 15:17:35 PDT by Jose Pop Please click the below link to view image of tracing.
[2025-08-14] MEDS: CARVEDILOL 12.5 MG TAB PO SCH (10:00)
[2025-08-14] MEDS: FUROSEMIDE 40 MG/4 ML VIAL IV SCH ×2 (10:37→18:00)
--- NOTE | 2025-08-14 14:30 | DVHPN2 ---
Assessment/Plan Assessment/Plan progress note 45 yo F with HFpEF, RV failure, meth use admitted for heart failure exacerbation. reported med use, denies alcohol use physical exam aox4 unkempt b/l crackles s1 s2 systolic murmur abdomen distended b/l LE edema labs ekg imaging reviewed POCUS done, severe RV dilation, IVC dilated with <50% excursion on inspiration, LVEF preserved, large pericardial effusion, limited study assessment and plan acute on chronic diastolic HF acute on chronic right heart failure torrential TR large pericardial effusion cirrhosis likely cardiac type 2 RI demand ischemia iso exacerbation HFpEF with exacerbation severe pulm HTN thrombocytopenia hyperbilirubinemia meth use telemetry diuresis, goal net -2L resume GDMT cardio consult for biv failure and pericardial effusion and severe phTN o2 maintain spo2 >94 reinforce abstinence and compliance trend lft echo (last nov 12) maintain MAP >65 diet cardiac dvt ppx lovenox poor prognosis full code Plan discussed with: Patient Date of Service: Aug 14, 2025 Billing Provider: PASHA HIDALGO MD Common Visit Codes: [id number] INP/OBS CARE(HIGH) PASHA HIDALGO MD Aug 14, 2025 14:30
--- NOTE | 2025-08-14 16:41 | DVHINCON2 ---
Date Seen: Aug 14, 2025 Referring Physician MD Gustavo Reason for Consultation Biventricular failure, large pericardial effusion, severe PAH History of Present Illness This is a 45-year-old female who presented to the emergency room via EMS with a chief complaint of shortness of breath for two days. The patient complains of progressive shortness of breath associated with increased abdominal girth, SHARMA, PND, and bilateral lower extremity edema. Denies chest pain, palpitations, diaphoresis, or syncopal events. She underwent a 12 lead revealing a sinus tachycardia rhythm at 116 bpm. Troponin levels peaked at 35 ng/L. Denies following up in the outpatient setting with a primary hearing officer. States she is currently taking Lasix and KCL therapy only. Significant medical history includes congestive heart failure with preserved EF, history of severe pulmonary hypertension, history of pericardial effusion, torrential wide open tricuspid regurgitation, paroxysmal atrial fibrillation without current therapy, liver cirrhosis, methamphetamine abuse with latest intake yesterday, and tobacco use including 15 pack-years. Past Medical History Past medical history reviewed. No other significant than mentioned above. Past Surgical History Hernia repair Family History: Patient reports no known family medical history. Family History Family history reviewed. Social History Admits to methamphetamine use since 13 y.o. Smokes one pack of cigarettes every two days. Stop cannabinoid use. Allergies: Coded Allergies: NO KNOWN ALLERGIES (Unverified , 09/15/15) Home Meds Active Scripts Metronidazole (Flagyl) 500 Mg Tab, 1 TAB PO TID, #30 TAB Prov:LEANN SEGURA MD 06/24/24 Levofloxacin Hemihydrate (LEVAQUIN 500 MG) 500 Mg Tab, 1 TAB PO DAILY, #10 TAB Prov:LEANN SEGURA MD 06/24/24 Reported Medications Spironolactone (Spironolactone) 100 Mg Tab, 1 DAILY 11/08/24 Furosemide (Furosemide) 40 Mg Tab, 1 TAB PO DAILY 11/08/24 Cephalexin Monohydrate (Cephalexin) 500 Mg Cap, 1 CAP PO TID for 7 Days, #21 06/21/24 Potassium Chloride (Potassium Chloride ER) 10 Meq Tab, 1 TAB PO DAILY 06/20/24 Losartan Potassium (Losartan Potassium) 25 Mg Tab, 1 TAB PO DAILY 06/20/24 Metoprolol Succinate (Metoprolol Succinate Er) 25 Mg Tab, 1 TAB PO DAILY 06/20/24 Sildenafil Citrate (Sildenafil Citrate) 20 Mg Tab, PO 06/20/24 Spironolactone (Spironolactone) 100 Mg Tab, 1 TAB PO DAILY 06/20/24 Furosemide (Furosemide) 40 Mg Tab, 1 TAB PO DAILY 06/20/24 Home Meds Lasix KCL Current Medications Current Medications Medications (Trade) Dose Ordered Sig/Kendra Route PRN Reason Start Time Stop Time Status Last Admin Furosemide (Lasix Injection) 40 mg DAILY IV 08/14/25 10:00 08/14/25 10:37 Aspirin 81 mg DAILY PO 08/14/25 10:00 08/14/25 10:37 Carvedilol (Coreg Tablet) 12.5 mg Q12HR PO 08/14/25 10:00 Levalbuterol HCl (Xopenex Medneb) 0.625 mg Q6HR NEB 08/14/25 00:00 08/14/25 11:55 Sodium Chloride (Saline Lock Ns) 10 ml Q8HR IV 08/14/25 06:00 08/14/25 14:02 Acetaminophen/ Hydrocodone Bitart ([place] 5/325MG Tab) 1 tab Q4HP PRN PO MODERATE PAIN (4-6 PAIN SCALE) 08/13/25 22:30 08/14/25 11:55 Ondansetron HCl (Zofran) 4 mg Q4HP PRN IV NAUSEA / VOMITING 08/13/25 22:30 08/14/25 14:21 DC Docusate Sodium (Colace Capsule) 100 mg BIDPRN PRN PO FOR CONSTIPATION 08/13/25 22:30 08/14/25 14:21 DC Acetaminophen (Tylenol Tablet) 650 mg Q6HP PRN PO PAIN SCALE 1-3 OR TEMP>100.4 08/13/25 22:30 Nitroglycerin (Ntrostat Sublingual) 0.4 mg Q5MINP PRN SL FOR CHEST PAIN 08/13/25 22:30 08/14/25 14:21 DC Morphine Sulfate 2 mg Q30M PRN IV FOR CHEST PAIN 08/13/25 22:30 08/14/25 14:21 DC Review of Systems Constitutional: No symptom reported Ears, Nose, & Throat: No symptom reported Eyes: No symptom reported Neurological: No symptoms reported Pulmonary/Respiratory: SOB, SHARMA, PND, BLE edema Cardiovascular: No symptom reported Gastrointestinal: Increased abdominal girth Genitourinary: No symptom reported Musculoskeletal: No symptom reported Skin: No symptom reported Psychiatric: No symptom reported Endocrine: No symptom reported Hemotologic/Lymphatic: No symptom reported Vital Signs Vital Signs Date Time Temp Pulse Resp B/P (MAP) Pulse Ox O2 Delivery O2 Flow Rate FiO2 08/14/25 13:00 98.0 87 20 118/73 (88) 89 98.0 08/14/25 11:55 Nasal Cannula 5.0 08/14/25 11:55 40 Physical Exam General Appearance: Cooperative. Unkept. Tachypneic. Moderate acute respiratory distress Head Exam: Normal inspection Neck Exam: Normal inspection. Normal alignment Pulmonary/Respiratory: Crackles to bilateral breath sounds. O2 via NC Cardiovascular/Chest: Regular rate and rhythm. Sinus rhythm. Systolic murmur. + JVD. Peripheral Pulses: 2+ Radial (R). 2+ Radial (L). 2+ Pedal (R). 2+ Pedal (L) Abdominal Exam: Normal bowel sounds. Soft. Ascitic Ankle Exam: Positive ankle pitting edema, 2+ Lower extremities: Positive lower extremity pitting edema, 2+ Neuro/Mental Status: A&O x3. Coherent Thoughts/Psych: Normal thought pattern. Appropriate mood and affect. Apathetic Appearance: Moderate acute respiratory distress Skin Exam: Normal inspection. Normal color. Warm. Dry Labs/Diagnostic Data Labs Test 08/14/25 05:35 08/14/25 00:20 08/13/25 23:59 08/13/25 21:19 Range/Units White Blood Count 4.2 L 4.4-10.8 10^3/uL Red Blood Count 4.43 4.0-5.20 10^6/uL Hemoglobin 13.2 12.2-16.2 g/dL Hematocrit 40.0 36.0-46.0 % Mean Corpuscular Volume 90.4 80.0-100.0 fL Mean Corpuscular Hemoglobin 29.8 28.0-32.0 pg Mean Corpuscular Hemoglobin Concent 33.0 32.0-36.0 g/dL Red Cell Distribution Width 19.3 H 11.8-14.3 % Platelet Count 123 L 140-450 10^3/uL Mean Platelet Volume 8.8 6.9-10.8 fL Neutrophils (%) (Auto) 64.8 37.0-80.0 % Lymphocytes (%) (Auto) 19.3 10.0-50.0 % Monocytes (%) (Auto) 12.6 H 0.0-12.0 % Eosinophils (%) (Auto) 1.9 0.0-7.0 % Basophils (%) (Auto) 1.4 0.0-2.0 % Neutrophils # (Auto) 2.7 1.6-8.6 10 ^3/uL Lymphocytes # (Auto) 0.8 0.4-5.4 10 ^3/uL Monocytes # (Auto) 0.5 0-1.3 10 ^3/uL Eosinophils # (Auto) 0.1 0-0.8 10 ^3/uL Basophils # (Auto) 0.1 0-0.2 10 ^3/uL Nucleated Red Blood Cells 0.1 % Sodium Level 137 136-145 mmol/L Potassium Level 3.9 3.5-5.1 mmol/L Chloride Level 104 98-107 mmol/L Carbon Dioxide Level 24 20-31 mmol/L Anion Gap 9 5-15 Blood Urea Nitrogen 9 9-23 mg/dL Creatinine 0.84 0.550-1.02 mg/dL Glomerular Filtration Rate Calc 88 >90 mL/min BUN/Creatinine Ratio 10.7 10.0-20.0 Serum Glucose 75 74-106 mg/dL Calcium Level 8.2 L 8.7-10.4 mg/dL Total Bilirubin 8.8 H 0.2-1.0 mg/dL Aspartate Amino Transferase (AST) 59 H 13-40 U/L Alanine Aminotransferase (ALT) 35 7-40 U/L Alkaline Phosphatase 183 H 46-116 U/L Total Protein 6.3 5.7-8.2 g/dL Albumin 2.9 L 3.2-4.8 g/dL Troponin I High Sensitivity 35 *H </=34 ng/L Urine Color Dark-yellow Yellow Urine Clarity Clear Clear Urine pH 5.5 5.0-9.0 Urine Specific [place] 1.016 1.001-1.035 Urine Protein 1+ H Negative Urine Ketones Negative Negative Urine Blood 1+ H Negative /uL Urine Nitrite Negative Negative Urine Bilirubin 1+ H Negative Urine Urobilinogen 4 H Negative mg/dL Urine Leukocyte Esterase Negative Negative /uL Urine RBC 1 0 - 4 /hpf Urine Microscopic WBC 3 0-5 /HPF Urine Squamous Epithelial Cells Few <5 /hpf Urine Bacteria None seen None Seen /hpf Urine Hyaline Casts Few 0 - 2 /lpf Urine Mucus Few None Seen Urine Glucose Normal Normal mg/dL B-Type Natriuretic Peptide 525.25 0-100 pg/mL Assessment Acute on chronic decompensated HFpEF, NYHA Class IV NSTEMI Type II secondary to above Recent history of atrial fibrillation, ?transient (off BB/antiarrhythmic/AC therapy) Torrential wide open tricuspid regurgitation Moderate posterior pericardial effusion Borderline thrombocytopenia Polysubstance abuse (meth,tobacco) Medical noncompliance Plan/Recommendation (Dr. Brower) Preliminary transthoracic echocardiogram reveals a preserved EF, RVSP at 34 mmHg, and a posterior pericardial effusion without evidence of tamponade which is also not amenable for pericardiocentesis. Initiate GDMT for CHF, preload and afterload reduction, strict I&Os, daily weight, and fluid restriction. The patient with history of A-fib presents with a normal sinus rhythm ([id number] Score 2 points, HAS-BLED 1 point). She can benefit from an outpatient event monitor to further delineate need of anticoagulation given borderline thromb ocytopenia. She could be a candidate for an atrial appendage closure as outpatient. Notify Cardiology of any tachyarrhythmias, hemodynamic changes, or worsening respiratory failure. Thank you for allowing us to participate in this patient's care. Please call if you have any questions or concerns. Critical care time: 40 min. This medical document was created using an electronic medical record system with voice recognition software and computerized dictation system. Although this document has been carefully reviewed, there might still be some phonetic and typographical errors. Occasional wrong-word or ``sound-alike substitutions may have occurred due to the inherent limitations of voice recognition software. These areas are purely typographical due to imperfections of the software programs and do not reflect any compromise in the patient's medical care. Please read the chart carefully and recognize, using context, where these substitutions have occurred. Plan discussed with: Patient, Other NYHA Physical activity limitations: Class4(Severe)discomfort (w any activit,symptoms at rest) Date of Service: Aug 14, 2025 Billing Provider: GILL BARR Cardiology Common Codes: [id number] CARE 30-74 MIN GILL BARR Aug 14, 2025 16:41
[2025-08-14 19:02] LABS: Opiate Scree,Urine Neg (NEGATIVE)
[2025-08-14 19:22] LABS: Amphetamine Screen, Urine Pos (NEGATIVE); Barbiturate Scree,Urine Neg (NEGATIVE); Benzodiazephine Screen, Urine Neg (NEGATIVE); Cannabinoid Screen, Urine Pos (NEGATIVE); Cocaine Screen, Urine Neg (NEGATIVE); Phencyclidine Screen, Urine Neg (NEGATIVE)
[2025-08-14] MEDS: CARVEDILOL 3.125 MG TAB PO SCH (22:00)
[2025-08-14] MEDS: SACUBITRIL-VALSARTAN 24mg/26mg TAB PO SCH (22:55)
[2025-08-15] VITALS (17 sets, daily range): BP systolic 89–135; BP diastolic 46–89; PULSE 67–99; RESP 14–20; TEMP 97.5–98.4; O2SAT 86–100
[2025-08-15 06:07] LABS: Hematocrit 40.5 % (36.0-46.0); Hemoglobin 13.6 g/dL (12.2-16.2); Mean Corpuscular Hemoglobin 30.7 pg (28.0-32.0); Mean Corpuscular Volume 91.4 fL (80.0-100.0); Nucleated Red Blood Cells % 0.3 %
[2025-08-15 06:20] LABS: Chloride 103 mmol/L (98-107); Potassium 3.8 mmol/L (3.5-5.1); Sodium 136 mmol/L (136-145)
[2025-08-15 06:21] LABS: Anion Gap 8 (5-15); Carbon Dioxide 25 mmol/L (20-31)
[2025-08-15 06:26] LABS: BUN/Creatinine Ratio 11.0 (10.0-20.0); Blood Urea Nitrogen 13 mg/dL (9-23); Glucose 102 mg/dL (74-106)
[2025-08-15 06:31] LABS: Calcium 8.3 mg/dL (8.7-10.4)
--- NOTE | 2025-08-15 08:41 | DVHPN2 ---
Consult Progress Note Date Seen: Aug 15, 2025 Subjective Review of Systems: CVS:Normal, RESPIRATORY:Abnormal, NEURO:Normal Other Systems: C/o mild SOB Objective vital signs Vital Sign Date Time Temp Pulse Resp B/P (MAP) Pulse Ox O2 Delivery O2 Flow Rate FiO2 08/15/25 06:19 97.5 96 97/46 (63) 95 97.5 08/15/25 05:00 17 08/15/25 00:35 Room Air 08/15/25 00:35 0 21 Total Intake and Output 08/14/25 08/14/25 08/15/25 15:00 23:00 07:00 Intake Total 650 ml 300 ml Output Total 310 ml Balance 650 ml -10 ml medications Current Medications Medications Dose Ordered Sig/Kendra Route Start Time Stop Time Status Last Admin Dose Admin Aspirin 81 mg DAILY PO 08/14/25 10:00 08/14/25 10:37 81 MG Levalbuterol HCl 0.625 mg Q6HR NEB 08/14/25 00:00 08/15/25 00:35 0.625 MG Sodium Chloride 10 ml Q8HR IV 08/14/25 06:00 08/15/25 06:03 10 ML Acetaminophen/ Hydrocodone Bitart 1 tab Q4HP PRN PO 08/13/25 22:30 08/14/25 22:55 1 TAB Acetaminophen 650 mg Q6HP PRN PO 08/13/25 22:30 Carvedilol 3.125 mg Q12HR PO 08/14/25 22:00 Empaglifozin 10 mg DAILY PO 08/15/25 10:00 Sacubitril/ Valsartan 0.5 tab BID PO 08/14/25 22:00 08/14/25 22:55 0.5 TAB Furosemide 40 mg BIDD IV 08/14/25 18:00 Examination: GENERAL:Abnormal, LUNGS:Abnormal (BLS crackles), CVS:Abnormal (BLE edema ++), NEURO:Abnormal laboratory and microbiology Laboratory Tests 08/15/25 05:30 Test 08/15/25 05:30 Range/Units Serum Glucose 102 74-106 mg/dL Problem List/Assessment/Plan Problem List/Assessment/Plan Acute on chronic decompensated HFpEF, NYHA Class IV End-stage right ventricular failure NSTEMI Type II secondary to above Recent history of atrial fibrillation, ?transient (off BB/antiarrhythmic/AC therapy) Torrential wide open tricuspid regurgitation Moderate posterior pericardial effusion Borderline thrombocytopenia Polysubstance abuse (meth,tobacco) Medical noncompliance Plan/Recommendation (Dr. Brower) Case discussed with Dr. Brower. Transthoracic echocardiogram reveals a preserved EF at 50%, end-stage RV failure, and a moderate mainly posterior pericardial effusion without evidence of tamponade not amenable to percutaneous intervention. Continue GDMT for HFpEF as tolerated, preload and afterload reduction, strict I&Os, daily weight, and fluid restriction. The patient with history of A-fib presents with a normal sinus rhythm ([id number] Score 2 points, HAS-BLED 1 point). She can benefit from an outpatient event monitor to further delineate need of anticoagulation given borderline thrombocytopenia. She could also be a candidate for an atrial appendage closure as outpatient. Kindly call if in need of further recommendations. Signing off at this time. Thank you for allowing us to participate in this patient's care. Please call if you have any questions or concerns. This medical document was created using an electronic medical record system with voice recognition software and computerized dictation system. Although this document has been carefully reviewed, there might still be some phonetic and typographical errors. Occasional wrong-word or ``sound-alike substitutions may have occurred due to the inherent limitations of voice recognition software. These areas are purely typographical due to imperfections of the software programs and do not reflect any compromise in the patient's medical care. Please read the chart carefully and recognize, using context, where these substitutions have occurred. Plan discussed with: Patient, Other Date of Service: Aug 15, 2025 Billing Provider: GILL BARR Cardiology Common Codes: [id number] HOSP CARE(High GILL BARR Aug 15, 2025 08:41
[2025-08-15] MEDS: EMPAGLIFLOZIN 10 MG TAB PO SCH (10:21)
--- NOTE | 2025-08-15 12:12 | DVHSR ---
APPROVED REPORT EXAM: Two-dimensional and M-mode echocardiogram with Doppler and color Doppler. Blood Pressure: 106/78 mmHg INDICATION Heart Failure RISK FACTORS Height: 5'5", Weight: 226 DIMENSIONS LVDd3.5 (3.8-5.7cm)LA (2D)3.0 (1.9-4.0cm)Aortic Root2.6 (2.0-3.7cm) LVDs1.6 (2.5-4.0cm)LA (MM) (1.9-4.0cm)Aortic Cusp Exc1.8 (1.5-2.0cm) EF (%) 84.0 (55-70%)Rt. Atrium7.0 (1.9-4.0cm)Asc. Aorta cm IVSd0.7 (0.7-1.1cm)RV (D)7.5 (1.8-2.4cm) PWd0.9 (0.7-1.1cm) Mitral Valve MitralMitral Stenosis E/A ratio0.02D MVAcm2 Aortic Valve Aortic ValveAortic Stenosis V10.70m/Ros Mean GR.mmHg V20.98m/Ros Peak GR.4mmHg LVOT Diameter1.9 (1.8-2.4cm)Doppler AVA2.02cm2 Pulmonic Valve V20.85m/s Tricuspid Valve TR Velocity1.90m/s [id number] Conclusion lvef 50% end stage RV failure, markedly severely enlarged R side torrential tricuspid regurg cannot assess PA pressurs moderate pericardial effusion, mainly posterior, not amenalbe to percutaneous intervention, no tampon sarah dilated IVC
[2025-08-15 12:46] LABS: Base Excess -0.4 mmol/L (-2.0-3.0)
--- NOTE | 2025-08-15 12:57 | DVHPN2 ---
Assessment/Plan Assessment/Plan progress note 45 yo F with HFpEF, RV failure, meth use admitted for heart failure exacerbation. reported med use, denies alcohol use seen today, breathing better, off ra, c/w diuresis, will go to snf on dc. PT eval, hydroxizine, melatonin. switch coreg to lower dose physical exam aox4 unkempt b/l crackles s1 s2 systolic murmur abdomen distended b/l LE edema labs ekg imaging reviewed POCUS done, severe RV dilation, IVC dilated with <50% excursion on inspiration, LVEF preserved, large pericardial effusion, limited study assessment and plan acute on chronic diastolic HF acute on chronic right heart failure torrential TR large pericardial effusion cirrhosis likely cardiac type 2 [place] demand ischemia iso exacerbation HFpEF with exacerbation severe pulm HTN thrombocytopenia hyperbilirubinemia meth use telemetry diuresis, goal net -2L resume GDMT cardio consult for biv failure and pericardial effusion and severe phTN o2 maintain spo2 >94 reinforce abstinence and compliance trend lft echo (last nov 12) maintain MAP >65 ss for snif diet cardiac dvt ppx lovenox poor prognosis full code Plan discussed with: Patient My Orders Orders - PASHA HIDALGO MD Procedure Category Date Status Time Strict I & O ERIN 08/14/25 In Process 14:20 Daily Weight ERIN 08/14/25 In Process 14:20 * Cardiology Consult CONS 08/14/25 Transmitted 14:27 Abg W/ Co-Ox RT 08/15/25 Logged 12:14 Date of Service: Aug 15, 2025 Billing Provider: PASHA HIDALGO MD Common Visit Codes: [id number] INP/OBS CARE(HIGH) PASHA HIDALGO MD Aug 15, 2025 12:57
--- NOTE | 2025-08-15 12:59 | DVH ---
EXAM: XY CHEST PORTABLE Indication: Acute HF Technique: Single frontal view of the chest was obtained Comparison: XY CHEST XRAY 1 VIEW on DOS: 08/13/25, XR CHEST 1 VIEW on DOS: 04/26/25, XR CHEST 1 VIEW on DOS: 04/24/25, XR CHEST 1 VIEW on DOS: 04/19/25, XY CHEST PORTABLE on DOS: 06/22/24 FINDINGS: Lines and Tubes: None Lungs: Left retrocardiac opacity. Pleura: No effusion. No pneumothorax. Cardiomediastinal contours: Cardiomegaly. Bones: No acute osseous abnormality. IMPRESSION: Cardiomegaly. Left retrocardiac opacity.
[2025-08-15 16:42] LABS: Base Excess -0.4 mmol/L (-2.0-3.0)
[2025-08-15] MEDS: FUROSEMIDE 20 MG/2 ML VIAL IV SCH (18:30)
[2025-08-15] MEDS: MELATONIN 5 MG TAB PO SCH (21:00)
[2025-08-15] MEDS: ONDANSETRON HCL 4 MG/2 ML VIAL IV PRN (21:45)
[2025-08-16] VITALS (14 sets, daily range): BP systolic 85–110; BP diastolic 53–73; PULSE 85–104; RESP 16–18; TEMP 96.5–98.7; O2SAT 85–99
[2025-08-16 08:53] LABS: Chloride 103 mmol/L (98-107); Potassium 3.5 mmol/L (3.5-5.1); Sodium 138 mmol/L (136-145)
[2025-08-16 08:54] LABS: Anion Gap 9 (5-15); Carbon Dioxide 26 mmol/L (20-31)
[2025-08-16 08:56] LABS: Calcium 8.3 mg/dL (8.7-10.4)
[2025-08-16 09:00] LABS: BUN/Creatinine Ratio 11.7 (10.0-20.0); Blood Urea Nitrogen 12 mg/dL (9-23); Glucose 86 mg/dL (74-106)
[2025-08-16 09:17] LABS: Hematocrit 40.6 % (36.0-46.0); Hemoglobin 13.5 g/dL (12.2-16.2); Mean Corpuscular Hemoglobin 30.1 pg (28.0-32.0); Mean Corpuscular Volume 90.7 fL (80.0-100.0); Nucleated Red Blood Cells % 0.3 %
[2025-08-16 10:36] LABS: Anisocytosis Slight
--- NOTE | 2025-08-16 11:04 | DVHPN2 ---
Assessment/Plan Assessment/Plan progress note 45 yo F with HFpEF, RV failure, meth use admitted for heart failure exacerbation. reported med use, denies alcohol use seen today, increasing diuresis more, output not adequate yest. still on o2. pt eval physical exam aox4 unkempt b/l crackles s1 s2 systolic murmur abdomen distended b/l LE edema labs ekg imaging reviewed POCUS done, severe RV dilation, IVC dilated with <50% excursion on inspiration, LVEF preserved, large pericardial effusion, limited study assessment and plan acute on chronic diastolic HF acute on chronic right heart failure torrential TR large pericardial effusion cirrhosis likely cardiac type 2 [place] demand ischemia iso exacerbation HFpEF with exacerbation severe pulm HTN thrombocytopenia hyperbilirubinemia meth use telemetry diuresis, goal net -2L resume GDMT cardio consult for biv failure and pericardial effusion and severe phTN o2 maintain spo2 >94 reinforce abstinence and compliance trend lft echo (last nov 12) maintain MAP >65 ss for snif diet cardiac dvt ppx lovenox poor prognosis full code Plan discussed with: Patient My Orders Orders - PASHA HIDALGO MD Procedure Category Date Status Time Abg W/ Co-Ox RT 08/15/25 Logged 12:14 Melatonin (Melatonin) PHA 08/15/25 In Process 22:00 Hydroxyzine Oral PHA 08/15/25 In Process (Vistaril Oral) 13:00 Date of Service: Aug 16, 2025 Billing Provider: PASHA HIDALGO MD Common Visit Codes: [id number] INP/OBS CARE(HIGH) PASHA HIDALGO MD Aug 16, 2025 11:04
[2025-08-16] MEDS ORDERED: MAALOX PLUS or MAALOX 30 ML PO PRN (13:15)
[2025-08-16] MEDS: POLYETHYLENE GLYCOL 17 GM PWDR PO ONE (13:33)
[2025-08-16] MEDS: hydrOXYzine HCL 10 MG TAB PO PRN (13:40)
[2025-08-16] MEDS: MAALOX PLUS or MAALOX 30 ML PO ONE (13:40)
[2025-08-16] MEDS: FUROSEMIDE 20 MG/2 ML VIAL IV SCH (18:11)
[2025-08-17] VITALS (10 sets, daily range): BP systolic 101–108; BP diastolic 67–89; PULSE 87–97; RESP 16–24; TEMP 98.3–98.5; O2SAT 86–95
[2025-08-17 06:22] LABS: Anion Gap 9 (5-15); Carbon Dioxide 25 mmol/L (20-31); Chloride 103 mmol/L (98-107); Hematocrit 40.8 % (36.0-46.0); Hemoglobin 13.7 g/dL (12.2-16.2); Mean Corpuscular Hemoglobin 30.7 pg (28.0-32.0); Mean Corpuscular Volume 91.0 fL (80.0-100.0); Nucleated Red Blood Cells % 0.6 %; Potassium 3.5 mmol/L (3.5-5.1); Sodium 137 mmol/L (136-145)
[2025-08-17 06:26] LABS: Calcium 8.3 mg/dL (8.7-10.4)
[2025-08-17 06:28] LABS: Glucose 81 mg/dL (74-106)
[2025-08-17 06:29] LABS: BUN/Creatinine Ratio 15.5 (10.0-20.0); Blood Urea Nitrogen 13 mg/dL (9-23); Magnesium 1.7 mg/dL (1.6-2.6)
[2025-08-17] MEDS: POLYETHYLENE GLYCOL 17 GM PWDR PO SCH (10:20)
[2025-08-17] MEDS: MAGNESIUM SULFATE 1GM/100ML 100 ML IV SCH (12:43)
[2025-08-17] MEDS ORDERED: FUROSEMIDE 20 MG/2 ML VIAL IV SCH (14:00)
--- NOTE | 2025-08-18 11:08 | DVHPN2 ---
Assessment/Plan Assessment/Plan progress note 45 yo F with HFpEF, RV failure, meth use admitted for heart failure exacerbation. reported med use, denies alcohol use seen today, lasix to TID. replete mag. dispo planning physical exam aox4 unkempt b/l crackles s1 s2 systolic murmur abdomen distended b/l LE edema labs ekg imaging reviewed POCUS done, severe RV dilation, IVC dilated with <50% excursion on inspiration, LVEF preserved, large pericardial effusion, limited study assessment and plan acute on chronic diastolic HF acute on chronic right heart failure torrential TR large pericardial effusion cirrhosis likely cardiac type 2 [place] demand ischemia iso exacerbation HFpEF with exacerbation severe pulm HTN thrombocytopenia hyperbilirubinemia meth use telemetry diuresis, goal net -2L resume GDMT cardio consult for biv failure and pericardial effusion and severe phTN o2 maintain spo2 >94 reinforce abstinence and compliance trend lft echo (last nov 12) maintain MAP >65 ss for snif diet cardiac dvt ppx lovenox poor prognosis full code Plan discussed with: Patient My Orders Orders - PASHA HIDALGO MD Procedure Category Date Status Time Alum & Mag PHA 08/16/25 In Process Hydrox-Simethicone 13:15 Polyethylene Glycol PHA 08/16/25 Logged 17g Powder (Miralax 13:15 Polyethylene Glycol PHA 08/17/25 In Process 17g Powder (Miralax 10:00 Pureed DIET 08/16/25 Transmitted Dinner Furosemide Injection PHA 08/17/25 Logged (Lasix Injection) 14:00 Basic Metabolic Panel LAB 08/18/25 Verified 04:00 Complete Blood Count LAB 08/18/25 Verified 04:00 Magnesium LAB 08/18/25 Verified 04:00 Phosphorus LAB 08/18/25 Verified 04:00 Date of Service: Aug 17, 2025 Billing Provider: PASHA HIDALGO MD Common Visit Codes: [id number] INP/OBS CARE(HIGH) PASHA HIDALGO MD Aug 17, 2025 11:30
--- NOTE | 2025-08-18 11:20 | DVHDS2 ---
Discharge Summary Date of Admission Aug 13, 2025 at 22:25 Labs/Diagnostic Data: Laboratory Results Test 08/17/25 05:37 08/16/25 08:28 08/15/25 12:38 08/15/25 05:30 White Blood Count 4.4 10^3/uL (4.4-10.8) Red Blood Count 4.48 10^6/uL (4.0-5.20) Hemoglobin 13.7 g/dL (12.2-16.2) Hematocrit 40.8 % (36.0-46.0) Mean Corpuscular Volume 91.0 fL (80.0-100.0) Mean Corpuscular Hemoglobin 30.7 pg (28.0-32.0) Mean Corpuscular Hemoglobin Concent 33.7 g/dL (32.0-36.0) Red Cell Distribution Width 19.0 % (11.8-14.3) Platelet Count 144 10^3/uL (140-450) Mean Platelet Volume 9.3 fL (6.9-10.8) Neutrophils (%) (Auto) 70.3 % (37.0-80.0) Lymphocytes (%) (Auto) 18.2 % (10.0-50.0) Monocytes (%) (Auto) 8.8 % (0.0-12.0) Eosinophils (%) (Auto) 1.6 % (0.0-7.0) Basophils (%) (Auto) 1.1 % (0.0-2.0) Neutrophils # (Auto) 3.1 10 ^3/uL (1.6-8.6) Lymphocytes # (Auto) 0.8 10 ^3/uL (0.4-5.4) Monocytes # (Auto) 0.4 10 ^3/uL (0-1.3) Eosinophils # (Auto) 0.1 10 ^3/uL (0-0.8) Basophils # (Auto) 0 10 ^3/uL (0-0.2) Nucleated Red Blood Cells 0.6 % Sodium Level 137 mmol/L (136-145) Potassium Level 3.5 mmol/L (3.5-5.1) Chloride Level 103 mmol/L (98-107) Carbon Dioxide Level 25 mmol/L (20-31) Anion Gap 9 (5-15) Blood Urea Nitrogen 13 mg/dL (9-23) Creatinine 0.84 mg/dL (0.550-1.02) Glomerular Filtration Rate Calc 88 mL/min (>90) BUN/Creatinine Ratio 15.5 (10.0-20.0) Serum Glucose 81 mg/dL (74-106) Calcium Level 8.3 mg/dL (8.7-10.4) Phosphorus Level 3.1 mg/dL (2.4-5.1) Magnesium Level 1.7 mg/dL (1.6-2.6) Platelet Estimate Adequate Large Platelets Few Anisocytosis (manual) Slight Target Cells Few Blood Gas Specimen Type Arterial Blood Gas Sample Site Right radial Blood Gas Patient Temperature 37.0 Arterial Blood Date Drawn Arterial Blood pH 7.480 (7.350-7.450) Arterial Blood Partial Pressure CO2 30.5 mmHg (32.0-45.0) Arterial Blood Partial Pressure O2 57.2 mmHg (83.0-108.0) Arterial Blood HCO3 22.2 mmol/L (21.0-28.0) Arterial Blood Oxygen Saturation 89.1 % (94.0-98.0) Arterial Blood Base Excess -0.4 mmol/L (-2.0-3.0) Arterial Blood Oxyhemoglobin 87.9 % (94.0-98.0) Arterial Blood Carboxyhemoglobin 1.1 % (0.5-1.5) Arterial Blood Methemoglobin 0.2 % (0.0-1.5) Beau Test Yes Blood Gas Total Hemoglobin 13.50 g/dL (12.0-16.0) Blood Gas Modality Room air FiO2 % 21.0 B-Type Natriuretic Peptide 421.71 pg/mL (0-100) Test 08/14/25 17:48 08/14/25 17:28 08/14/25 05:35 08/14/25 00:20 Urine Opiates Screen Neg (NEGATIVE) Urine Fentanyl Screen Neg (NEGATIVE) Urine Barbiturates Screen Neg (NEGATIVE) Urine Phencyclidine Screen Neg (NEGATIVE) Urine Amphetamines Screen Pos (NEGATIVE) Urine Benzodiazepines Screen Neg (NEGATIVE) Urine Cocaine Screen Neg (NEGATIVE) Urine Cannabinoids Screen Pos (NEGATIVE) Hemoglobin A1c 5.0 % A1C (<5.7) Thyroid Stimulating Hormone (TSH) 5.26 uIU/mL (0.55-4.78) Total Bilirubin 8.8 mg/dL (0.2-1.0) Aspartate Amino Transferase (AST) 59 U/L (13-40) Alanine Aminotransferase (ALT) 35 U/L (7-40) Alkaline Phosphatase 183 U/L (46-116) Total Protein 6.3 g/dL (5.7-8.2) Albumin 2.9 g/dL (3.2-4.8) Troponin I High Sensitivity 35 ng/L (</=34) Test 08/13/25 23:59 Urine Color Dark-yellow (Yellow) Urine Clarity Clear (Clear) Urine pH 5.5 (5.0-9.0) Urine Specific [place] 1.016 (1.001-1.035) Urine Protein 1+ (Negative) Urine Ketones Negative (Negative) Urine Blood 1+ /uL (Negative) Urine Nitrite Negative (Negative) Urine Bilirubin 1+ (Negative) Urine Urobilinogen 4 mg/dL (Negative) Urine Leukocyte Esterase Negative /uL (Negative) Urine RBC 1 /hpf (0 - 4) Urine Microscopic WBC 3 /HPF (0-5) Urine Squamous Epithelial Cells Few /hpf (<5) Urine Bacteria None seen /hpf (None Seen) Urine Hyaline Casts Few /lpf (0 - 2) Urine Mucus Few (None Seen) Urine Glucose Normal mg/dL (Normal) Other Laboratory Tests 08/17/25 05:37 Discharge Disposition: AMA Discharge Instruct/Medications Scheduled Cephalexin Monohydrate (Cephalexin), 1 CAP PO TID, (Reported) Furosemide (Furosemide), 1 TAB PO DAILY, (Reported) Furosemide (Furosemide), 1 TAB PO DAILY, (Reported) Levofloxacin Hemihydrate (Levaquin 500 Mg), 1 TAB PO DAILY Losartan Potassium (Losartan Potassium), 1 TAB PO DAILY, (Reported) Metoprolol Succinate (Metoprolol Succinate Er), 1 TAB PO DAILY, (Reported) Metronidazole (Flagyl), 1 TAB PO TID Potassium Chloride (Potassium Chloride ER), 1 TAB PO DAILY, (Reported) Spironolactone (Spironolactone), 1 TAB PO DAILY, (Reported) Spironolactone (Spironolactone), 1 DAILY, (Reported) Miscellaneous Medications Sildenafil Citrate (Sildenafil Citrate), PO, (Reported) Discharge Statement: "Patient was advised to return to the ER or call 911 if any headaches, dizziness, shortness of breath, chest pain, abdominal pain, bleeding, fevers, or worsening of medical condition. Patient was counseled about treatment plan, medications, possible side effects, patientverbalized understanding. All questions were answered to the best of my ability. This discharge took greater then 30 minutes in planning, reviewing documentation, counseling the patient, and discussing with other team members." ASSESSMENT ASSESSMENT Assessment Date of Service: Aug 17, 2025 Billing Provider: PASHA HIDALGO MD Common Visit Codes: 11703-MFW/OBS DISCH DAY >30min PASHA HIDALGO MD Aug 17, 2025 17:16
== END 2025-08-17 13:55 | disposition left against medical advice (07) | DRG 194 ==
LOC: ER 20:19 → EDBD 20:19 → OVERFLOW 22:25 → TELE-EAST 08-14 03:43
PROVIDERS: ADMIT Student in an Organized Health Care Education/Training Program; ATTEND Student in an Organized Health Care Education/Training Program
DX: I11.0 Hypertensive heart disease with heart failure (principal); I31.39 Other pericardial effusion (noninflammatory); D69.6 Thrombocytopenia, unspecified; N17.9 Acute kidney failure, unspecified; I50.33 Acute on chronic diastolic (congestive) heart failure; I27.20 Pulmonary hypertension, unspecified; K74.60 Unspecified cirrhosis of liver; F15.10 Other stimulant abuse, uncomplicated; I07.1 Rheumatic tricuspid insufficiency; I21.A1 Myocardial infarction type 2; E87.6 Hypokalemia; F17.210 Nicotine dependence, cigarettes, uncomplicated; I48.0 Paroxysmal atrial fibrillation; E80.6 Other disorders of bilirubin metabolism; Z53.29 Procedure and treatment not carried out because of patient's decision for other reasons; Z91.199 Patient's noncompliance with other medical treatment and regimen due to unspecified reason; Z79.899 Other long term (current) drug therapy
CPT/HCPCS: 36415; 36600; 71045; 80048; 80053; 80307; 81001; 82805; 83036; 83735; 83880; 84100; 84443; 84484; 85025; 93005; 93306; 94640; 97110; 97116; 97163; G0378; J2405